=== PATIENT | male | born 1960 | race Caucasian/White ===

== ENCOUNTER 2020-08-28 08:48 | Outpatient (CLI) | payer BC, SELFPAY ==
--- NOTE | ~2020-08-28 | CT_ITS ---
EXAMINATION: CT abdomen pelvis wo con DATE: 08/28/2020 09:06 INDICATION: Right inguinal hernia TECHNIQUE: Computed tomography (CT) of the abdomen and pelvis was performed without intravenous contr ast. The dose-length product (DLP) was 495.98 mGy-cm. Automated exposure control and iterative recons truction technique were employed. COMPARISON: None FINDINGS: The lung bases are clear. The heart size is normal. The liver, spleen, pancreas, gallbladde r, and adrenal glands are normal. The kidneys are unremarkable. No pathologically enlarged abdominal or pelvic lymph nodes are identified. There is no free intraperitoneal gas or evidence of bowel obstr uction. The appendix is normal. There is a right inguinal hernia containing fat. A small fat-containi ng umbilical hernia is also noted. There is mild lumbar spondylosis. IMPRESSION: 1. Fat-containing right inguinal hernia. Reviewed, dictated and finalized at location A. F DRAFTER
--- NOTE | ~2020-08-28 | XR_ITS ---
EXAMINATION: XR lumbar spine 2-3V DATE: 08/28/2020 09:08 INDICATION: Low back pain TECHNIQUE: Anteroposterior and lateral views of the lumbar spine, and cone-down lateral view of the l umbosacral junction were obtained. COMPARISON: None FINDINGS: There is no fracture, dislocation, or subluxation. The vertebral body heights are maintaine d. There is mild loss of intervertebral disc space height at L4-5. Mild facet osteoarthritis is prese nt in the lower lumbar spine. Small degenerative osteophytes project from the anterior endplates of m ultiple vertebral bodies. IMPRESSION: 1. Mild lumbar spondylosis without acute findings. Reviewed, dictated and finalized at location A. [employer]UMENT MECH[employer]IC
== END 2020-08-28 08:49 | disposition home or self-care (01) ==
PROVIDERS: PCP Emergency Medicine; Visit Provider Emergency Medicine
DX: K40.90 Unilateral inguinal hernia, without obstruction or gangrene, not specified as recurrent (principal); M47.896 Other spondylosis, lumbar region
CPT/HCPCS: 72100; 74176